=== PATIENT | female | born 1985 | race Caucasian/White ===

== ENCOUNTER 2022-02-09 13:37 | Emergency (ER) | payer BC, SELFPAY ==
[2022-02-09 13:43] VITALS: BP 81/49; PULSE 74; RESP 100; TEMP 36.5; O2SAT 100
[2022-02-09] MEDS: Normal Saline 1,000 ML 1000 ML IV (14:00)
[2022-02-09 14:05] VITALS: RESP 17
--- NOTE | 2022-02-09 14:06 | ED.GENADUL_ITS ---
Discharge Plan Disposition Patient Disposition: HOME Condition: Improving Discharge Details Clinical Impression: Bee sting Primary Care Provider: Unknown,Unknown ED Provider: Ray Nichols Discharge Instructions Instructions: Insect Bite or Sting (ED) Additional Instructions: At this time your pressure is in the 90s over 50s, you are feeling improvement, and there are no signs of decompensation or systemic reaction. Please watch for new or worsening symptoms and return to the ER for any concerns. Otherwise please contact your DIRECTOR OF ANNUAL GIVING team on Friday to discuss your ER visit and need for outpatient reevaluation. Medical Decision Making This is a 36-year-old female, approximately 36 weeks , presents to the ER for concern of a bee sting. She states that she was stung approximately 1 hour ago in the right posterior shoulder, subsequently felt warm, her vision went slightly black, and felt like she may pass out. She never did have a syncopal episode, and she feels much improved now. She has never been stung by a bee previously and wanted to come to the ER to be sure everything was okay. Upon presentation her blood pressures were noted to be in the 80s over 40s, she states that she typically runs low but this is slightly lower than her baseline. Clinically she appears well, nontoxic, neurologically intact. No evidence of systemic reaction, angioedema, etc. We discussed treatment plan. IV has already been established and we will provide 1 L IV fluid. We did discuss B enadryl and/or Pepcid as first-line treatment but patient declines these medications. She would prefer observation and has minimal medication treatment is possible. Given how she looks I believe this to be a reasonable Patient was observed in the ER for over 1 hour 45 minutes. She received IV fl uid, tolerated p.o. intake, and was ambulatory without difficulty. Heart rate of 79, blood pressure 92/52 which she reports to be at her baseline. No evidence of systemic reaction, decompensation, angioedema, etc. Patient comfortable discharge at this time. Standard discharge and return precautions were provided. Patient understands, is agreeable to this plan, and has no additional questions or concerns upon discharge. This documentation was generated using Object[employer] system, please disregard any oddities of phrase or misspellings. HPI General Mode of arrival: ambulatory . Date/Time Provider Initiated Documentation: 02/09/22 13:38 . Limitations to Documentation: no limitations . Information obtained by: patient and family . HPI Narrative: This is a 36-year-old female, approximately 36 weeks , presenting to the ER for evaluation of a bee sting to her right shoulder approximately 1 hour ago. Patient states that she was stung by the bee, she ran around trying to get away from the bee, felt excited, overheated, and then felt as though she may pass out. She had generalized weakness, felt as though her vision was going black. She did not have a syncopal episode. She has not taken any [id number] medications. She has never been stung by a bee. Patient reports that her blood pressure does typically run well although this is slightly lower than her baseline. She was in the area visiting and has her medical care out in the [facility]. She denies recent illness or trauma, chest pain, shortness of breath, skin rash, lip, tongue, mouth swelling, wheezing, difficulty speaking or swallowing. She reports now she no longer feels warm and her vision has returned to normal. Denies abdominal pain, nausea, vomiting, vaginal bleeding General Stated Complaint: GenMedical PIERRE: 3 Review of Systems Constitutional Constitutional: Denies headache(s) and Denies weakness ENT Ears, Nose, Mouth, and Throat: Denies headache(s), Denies lip swelling and Denies throat swelling Cardiovascular Cardiovascular: Denies chest pain and Denies dyspnea Respiratory Respiratory: Denies cough, Denies dyspnea and Denies wheezing Gastrointestinal Gastrointestinal: Denies abdominal pain, Denies nausea and Denies vomiting Genitourinary Genitourinary: Denies abnormal vaginal bleeding Musculoskeletal Musculoskeletal: Denies numbness and Denies tingling Integumentary/Breasts Skin/Breast: Reports erythema Neurologic Neurologic: Denies headache(s), Denies numbness, Denies tingling and Denies weakness Allergic/Immunologic Allergic/Immunologic: Denies lip swelling, Denies throat swelling and Denies wheezing PFSH All Active Problems (Updated 02/09/22 @ 15:15 by JACY Lamar) Bee sting (Acute) Social History Smoking/Tobacco Use Status: Never Smoking risk assessment performed?: Yes Alcohol Intake: never Substance use type: does not use Do you feel safe at home: Yes Do you feel safe in your relationship?: Yes Exam Const General: cooperative, healthy appearing, comfortable and no acute distress Orientation: alert, awake and oriented x3 HENMT Head: normal to inspection, normocephalic and atraumatic General nose exam: external nose normal Face and sinus: normal facial exam Mouth: oral mucosae normal and moist mucous membranes Throat: posterior oropharynx normal Eyes General: appearance normal, both eyes and all related structures Conjunctivae: conjunctivae normal Neck Neck: normal visual inspection, trachea midline and supple Resp Effort & Inspection: normal respiratory effort and able to speak in complete sentences Auscultation: clear to auscultation bilaterally Cardio Rate: regular rate Rhythm: regular rhythm GI Palpation: soft and nontender Other: Examination consistent with approximately 36-weeks Back/Spine/Pelvis Back: back tenderness Back/spine/pelvis image: 1. Area is slightly tender macular erythema, centrally there is a puncture wound with no obvious foreign body. Skin General skin exam: erythema (As above) Neuro General: patient alert, patient awake, patient oriented x3, moves all extremities and no focal motor deficits Cognition: normal cognition Speech: speech normal Gait: normal gait Motor: muscle tone normal throughout Sensory Exam: no sensory deficits noted Extrem General: normal to inspection, full ROM and capillary refill normal Psych Appearance: grossly normal Mental Status: mental status grossly normal Course Vital Signs Vital signs: Vital Signs Temperature 36.5 C 02/09/22 13:43 Pulse 74 02/09/22 13:43 Respiratory Rate 100 H 02/09/22 13:43 Blood Pressure 81/49 L 02/09/22 13:43 Pulse Oximetry 100 02/09/22 13:43 Temperature 36.5 C 02/09/22 13:43 Temperature Source Temporal Artery Scan 02/09/22 13:43 Pulse 74 02/09/22 13:43 Respiratory Rate 100 H 02/09/22 13:43 Respiratory Effort Non-Labored 02/09/22 13:48 Blood Pressure 81/49 L 02/09/22 13:43 Blood Pressure Position Sitting 02/09/22 13:43 Pulse Oximetry 100 02/09/22 13:43 Oxygen Delivery Method Room Air 02/09/22 13:43 Oxygen Flow Rate 0 02/09/22 13:43
[2022-02-09 15:15] VITALS: BP 92/52; PULSE 79; RESP 12; TEMP 36.6; O2SAT 99
== END 2022-02-09 15:39 | disposition home or self-care (01) ==
PROVIDERS: Emergency Provider Physician Assistant
DX: O9A.213 Injury, poisoning and certain other consequences of external causes complicating pregnancy, third trimester (principal); T63.441A Toxic effect of venom of bees, accidental (unintentional), initial encounter; S21.231A Puncture wound without foreign body of right back wall of thorax without penetration into thoracic cavity, initial encounter; X58.XXXA Exposure to other specified factors, initial encounter; Z3A.36 36 weeks gestation of pregnancy; O09.513 Supervision of elderly primigravida, third trimester
CPT/HCPCS: 96360; 99283; 99282